=== PATIENT | female | born 1960 | race African-American/Black ===

== ENCOUNTER 2021-02-16 20:08 | Emergency (ER) | payer OTHER ==
[~2021-02-16] VITALS: Ht 154.9 cm; Wt 81.7 kg
[2021-02-16 21:43] VITALS: BP 107/76
[2021-02-17] MEDS ORDERED: LIPITOR 40 MG T40 M1 PO (12:34)
[2021-02-17] MEDS ORDERED: LEXAPRO 10 MG T10 M1 PO (12:35)
[2021-02-17] MEDS ORDERED: ZYPREXA2.5 MG PO (12:36)
[2021-02-17] MEDS ORDERED: LORAZEPAM 0.50.5 MG PO (12:36)
== END 2021-02-16 21:45 ==
LOC: ER 20:08
DX: F20.2 Catatonic schizophrenia (principal); Z20.822 Contact with and (suspected) exposure to COVID-19; F32.9 Major depressive disorder, single episode, unspecified

== ENCOUNTER 2021-02-16 22:00 | Inpatient (IN) | payer OTHER ==
--- NOTE | 2021-02-17 03:00 | NUR ---
PATIENT ARRIVED FROM THE E.D. APPROXIMATELY 2200. ALERT, ORIENTED TO PERSON, RECENT HS OR INTERMITTENT CATATONIA. DEMANDING HER CLOTHES, AND TELEPHONE. ORIENTED PATIENT TO UNIT AND GENERAL PROCEDURES. PATIENT CALMED AND RESTED IN HER BED BRIEFLY. SHE AMBULATED WITHOUT DIFFICULTY IN TO THE DAYROOM AND ASKED FOR A SNACK. SHE ATE AND DRANK WITHOUT INCIDENT. SHE HAS REMAINED SITTING IN THE DAYROOM. SHE HAS NOT INITIATED ANY OTHER CONTACT WITH STAFF OR PEERS. STAFF WILL CONTINUE TO MONITOR PER [facility] PROTOCOL.
--- NOTE | 2021-02-17 05:58 | NUR ---
ON EXAM PATIENT STILL HAD [address] OF LEFT AC SPACE. HEPLOCK REMOVED WITH 20 GA CATHETER IN TACT. 2X2 GAUZE AND PAPER TAPE APPLIED. PATIENT STATED "YOU CAN'T KEEP ME HERE." FASTING ACCUCHECK DONE, RESULT 108. PATIENT COMPLAINED LOWER EPIGASTRIC AND STOMACH UPSET, GOT 15CC MALOXX FOR PATIENT AND SHE REFUSED IT. AGAIN EXPLAINED 96 HOUR HOLD PROCESS TO PATIENT AND THAT THE TEAM AT [facility] SPOKE WITH HER SISTER AND SON TO OBTAIN MENTAL HEALTH HISTORY ALONG WITH INFORMATION FROM HER INPATIENT STAY TO FILE PAPERWORK FOR THE 96 HOUR HOLD AND IT WOULD BE LATE SUNDAY NIGHT AT THE EARLIEST BEFORE HER 96 HOUR HOLD WOULD . SHE STATED, 'YOU CAN'T KEEP ME HERE, YOU GOING TO NEED TO CALL THE POLICE AND THEN THEY CAN'T EVEN KEEP ME HERE, YOU GOT NO RIGHT."
[2021-02-17 06:06] VITALS: BP 103/75
[2021-02-17 08:45] LABS: CHOLESTEROL 146 mg/dL (<200); HDL CHOLESTEROL 58 mg/dL (>40); LDL CHOLESTEROL 75 mg/dL (<100); TC:HDL 2.5 Ratio (Not establshd); TRIGLYCERIDE 67 mg/dL (<150); VLDL 13 mg/dL (<40)
[2021-02-17 09:43] VITALS: BP 138/74
--- NOTE | 2021-02-17 11:13 | NUR ---
Nutrition: pt admitted with unspecified psychosis, depression to [facility] unit. PMH: DM, HLD, COPD, MDD, catatonia. RD received consult stating " ACHS accuchecks with SSI at prior hospital". Pt on carb controlled diet with good appetite reported, ate 90% of breakfast this am. No significant weight changes reported. Pt on 96 hour hold and mainly stating she wants to go home. No DM meds ordered. POC BG 108 this am. Follow BG trends for medication need. Low nutrition risk.
[2021-02-17] MEDS ORDERED: LIPITOR 40 MG T40 M1 PO (12:34)
[2021-02-17] MEDS ORDERED: LEXAPRO 10 MG T10 M1 PO (12:35)
[2021-02-17] MEDS ORDERED: ZYPREXA2.5 MG PO (12:36)
[2021-02-17] MEDS ORDERED: LORAZEPAM 0.50.5 MG PO (12:36)
[2021-02-17 12:49] VITALS: BP 138/74
--- NOTE | 2021-02-17 12:49 | NUR ---
1245 RESUMMED CARE FROM OVERNIGHT SHIFT THIS AM, PATIENT IN DAY ROOM UPSET THE WAS BROUGHT HERE. PATIENT DENIES SI/HI/AH/VH AT PRESENT PATIENT ALERT ORIENTED TIMES 4. PATIENTS ABDOMEN SOFT BOWEL SOUNDS PRESENT PATIENTS LUNGS CLEAR. PATIENT TALKED WITH SON THIS MORNING AND HE TALKED WITH ME AND STATED HIS MOMS DID NOT BELONG HERE. DR NICE AND LUIS TALKED WITH THE PATIENT AND HER FAMILY. PATIENT IS BEING DISCHARGING TODAY WILL CONTINUE TO MONITOR PATIENT FOR SAFETY AND BEHAVIORS.
--- NOTE | 2021-02-17 16:54 | NUR ---
@[address] Adan participated in a family meeting with the Pt and her son Flo, . The chart was reviewed. Pt denied SI/HI and VH/AH. Pt was able to answer questions and was tearful during this encounter. Pt did not understand she came to be on a psy unit because she went to the ER for issues with her eyes. Pt stated she lives with her 21 year old daughter. Pt denied current psychiatric or theraputic services. Pt reported she was in [facility] after her mother passed " many years ago". Pt was brought in on a 96 hr however the paperwork was not completed properly and there was not evidence it had been faxed to [facility]. PT was unwilling to sign herself in and requested to go home. Dr. Dean informed the discharge would be AMA. Pt was in agreement. Pt was willing to complete a DPOA before she was discharged. @1330 Pt completed discharge and copy was placed in the Pt's chart and a copy provided to the Pt. Pt discharged AMA @ 1400. Pt son Flo provided transportation home for the Pt.
--- NOTE | 2021-02-17 20:51 | H ---
[facility] [place] [address] [place] [address] HISTORY AND PHYSICAL Name: PREMA DE LEÓN Room #: 518B-B DIS IN M.R.#: [id number] Admission: 02/16/21 Attend Phys: Sharron Narvaez DO Discharge: 02/17/21 Date of : 60 Report #: [id number] THIS REPORT FOR: cc: FAM - No family physician/PCP FAM - No family physician/PCP Sharron Narvaez DO ~ DOC #: [id number] SHARRON Narvaez DO DATE OF SERVICE: 02/17/2021 INPATIENT PSYCHIATRIC EVALUATION Of note, I will dictate this evaluation, but the patient has requested to leave today, so this will be an against medical advice discharge. SOURCES OF INFORMATION: Records from [facility], in-person interview with the patient, collateral obtained over the phone from her son, Flo. CHIEF COMPLAINT: Concern for depression, catatonia from referring hospital. The patient just says "I wanted to go home." HISTORY OF PRESENT ILLNESS: This is a 60-year-old black female, resident of [place], [place]. The patient has had a recent rather lengthy hospital course. She was admitted at [facility] 01/25/2021. This was due to a 911 hangup. She was found to have altered mental status. She was in her normal state of health the night before admission to [facility], and code stroke was activated on arrival in the ER. For right-sided weakness and speech disturbances, Neurology was consulted. Her [employer] [place] [facility] [employer] Stroke Scale was a 4. Right upper extremity weakness, mild right basal palsy, mild dysarthria, mild expressive aphasia. Vital signs were stable. Stat CT was negative for acute findings. Not a TPA candidate. Given outside of time frame, MRI was ordered. CT of the head and neck not obtained due to contrast allergy. 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 Stat MRI of the head and neck showed normal appearance of intracranial and extracranial structures. Apparently, the patient had an episode in the MRI suite where she was nonverbal for a period of time, anxious with not incomprehensible speech. EEG was reportedly done, though I do not have the records handy. Per son, Flo, he reports the patient lives with her daughter, does not have a DPOA or guardian and states that these symptoms have been going on since October of this year and she was seen and admitted to [facility] for similar symptoms previously. He says her symptoms never went away. He does not feel like she has any different today than she has been. He reports witnessing episodes where she will wake up not talking well and confused and will "black out at times." He states she called him this morning complaining of feeling "drunk." She has not been wanting to eat lately. [facility] [address] [place] [address] HISTORY AND PHYSICAL Name: PREAM DE LEÓN Room #: 8B-B DIS IN M.R.#: [id number] Admission: 02/16/21 Attend Phys: Sharron Narvaez, DO Discharge: 02/17/21 Date of : 60 Report #: [id number] PAST MEDICAL HISTORY: From [facility] records include hypertension, hyperlipidemia, diabetes mellitus type 2. Some degree of congestive heart failure, COPD, craniopharyngioma, gastritis, peptic ulcer disease, history of H. pylori infection, arthritis and deep venous thrombosis in the right lower extremity. Some additional history records, Lexiscan stress test 11/12/2018, no reversible ischemia, low risk. Cardiac cath 2013, no significant CAD. PAST SURGICAL HISTORY: For this patient is appendectomy, hysterectomy, right knee, x3. FAMILY HISTORY: Significant for diabetes, hypertension. Her mother is of coronary artery disease. SOCIAL HISTORY: Denies recreational drug use. She is a former smoker. She smoked a half pack a week for 40 years. Her son is Carlos Herrera at [phone]. Daughter is at [phone]. ALLERGIES: INCLUDE IODINE, PENICILLINS, CODEINE, TRAZODONE, HALOPERIDOL, NAPROXEN. LABORATORY DATA: Of note from [facility] on 01/25, sodium 141, potassium 3.1, chloride 110, bicarb 27, anion gap 7, BUN 6, creatinine 0.7, GFR 109.7, hemoglobin A1c 7.0, calcium 9.4, magnesium 2.4, total bili 0.7, AST 17, ALT 18, alk phos 79. Troponin less than 0.02. Total protein 8.1, albumin 3.5. PT 11.2, INR 1.0, APTT 22.0. White count 8.0, H and H 13.6 and 43.4, platelet count 339. Urine drug screens were negative. Urinalysis was largely negative. I believe I have already reviewed the CT and MRI results done at [facility]. The patient did receive a psychiatric consultation at [facility] from a tele psychiatrist, named Dr. Josue. It is not clear where Dr. Josue practices. That said, the diagnosis made by this Telehealth psychiatrist is a little strange. They diagnosed with altered mental status, rule out catatonia; rule out bipolar 1, recurrent, depressed, severe with psychotic features. Dr. Josue recommended inpatient psychiatric admission. The patient was already on Ativan 0.5 mg p.o. b.i.d., Zyprexa 2.5 at bedtime. It looks like he last saw the patient on 02/09. I do not know why there was a delay of about 6 days from the patient being sent to us. The patient's medications at [facility] were olanzapine 2.5 mg p.o. at bedtime, Lexapro 10 mg p.o. daily, lorazepam 0.5 mg p.o. b.i.d. She had previously been on Rocephin that was discontinued, aspirin 81 mg oral daily, reportedly cholecalciferol 5000 international units oral daily. The Telehealth psychiatrist got most of his information from the patient's daughter. When I talked to the patient's son today, he was somewhat questioning information that was given, but there is some concern that patient has had bipolar disorder, but according to the patient, she has not been [address] [address] HISTORY AND PHYSICAL Name: PREMA DE LEÓN Room #: 8B-B DIS IN M.R.#: [id number] Admission: 02/16/21 Attend Phys: Sharron Narvaez DO Discharge: 02/17/21 Date of : 60 Report #: [id number] formally diagnosed. Therefore, I do not want to read stuff that was documented at [facility] and is still somewhat speculative. REVIEW OF SYSTEMS: A 10-point review of systems was done by the hospitalist and was negative and no specific somatic complaints were given and the patient other than some memory difficulties, as she said it was January and it was February, denied psychiatric symptoms. PHYSICAL EXAMINATION: VITAL SIGNS: Here at [facility], temperature 36.6, pulse 74, respirations 18, BP 138/74, O2 sat 99%. MUSCULOSKELETAL EXAM: Slow gait, slightly kyphotic station, bit unkempt. MENTAL STATUS EXAMINATION: This is a well-developed black female appearing stated age. Attention fair. Concentration fair. Speech slow, soft. Thought process linear and goal directed. Thought content focused on discharge. No psychomotor agitation. Slight psychomotor retardation. Denied suicidal ideation. Denied homicidal ideation. Denied auditory, visual or tactile hallucination. Mood and affect was anxious, congruent, constricted. Insight and judgment were fair to limited. Fund of knowledge likely below average. SOME ADDITIONAL COMMENTS: The patient's son reported he was not contacted about her being moved to [facility]. We did confirm at this time, the patient does not have a healthcare DPOA or guardian and we discussed that this was the reason he likely was not contacted. At this point, he did not want his mother hospitalized. I offered to discharge the patient tomorrow and make it a regular discharge, but she requested discharge today. Therefore, it will be against medical advice. FORMULATION: A 60-year-old black female admitted due to concerns of a catatonic depression. The patient is declining to stay in the hospital for continued evaluation. DIAGNOSIS: At this time would be unspecified depressive disorder. PLAN: Plan to discharge at 2:00 p.m. this afternoon per patient request. I have prescribed for her Lexapro 10 mg #30, lorazepam 0.5 mg b.i.d. 15-day supply, olanzapine 2.5 mg p.o. at bedtime and atorvastatin 40 mg oral daily. The patient will need outpatient psychiatric followup as well as general medical followup. Our child protective services social worker will endeavor to get this done under the AMA time frame. Time spent on this case was greater than 60 minutes, greater than 50% of time spent in review of records, coordination of care. STRENGTHS: She has Medicaid. She has some family support. [facility] [address] [place] [address] HISTORY AND PHYSICAL Name: PREMA DE LEÓN Room #: 518B-B DIS IN M.R.#: [id number] Admission: 02/16/21 Attend Phys: Sharron Narvaez DO Discharge: 02/17/21 Date of : 60 Report #: [id number] WEAKNESSES: Poor coping skills, leaving the hospital against medical advice. Do not have DPOA for her. Also laboratories done here at [place]. Blood sugar was running 108-135 this morning, triglycerides 67, cholesterol 146, LDL 75, HDL 58. COVID-19 serology on 02/16 was negative. SHARRON Narvaez DO AHK/MARITZA/TAJ <ELECTRONICALLY SIGNED> By: Sharron Narvaez DO 02/17/212050 1241 1318 Sharron Narvaez DO /nt
--- NOTE | 2021-02-18 21:17 | D ---
[facility] [place] [address] [place] [address] DISCHARGE SUMMARY Name: PREMA DE LEÓN Room #: 518B-B DIS IN M.R.#: [id number] Admission: 02/16/21 Attend Phys: Sharron Narvaez DO Discharge: 02/17/21 Date of : 60 Report #: [id number] THIS REPORT FOR: cc: FAM - No family physician/PCP FAM - No family physician/PCP Sharron Narvaez DO ~ DOC #: [id number] SHARRON Narvaez DO DATE OF SERVICE: 02/17/2021 INPATIENT PSYCHIATRIC DISCHARGE SUMMARY ATTENDING PSYCHIATRIST: Sharron Narvaez DO. TERRITORY SALES PROFESSIONAL: Sharron Ramirez MD Please note this was an against medical advice discharge. DISCHARGE DIAGNOSIS: Unspecified depression, concern for catatonia. MEDICAL COMORBIDITIES: Diabetes, hyperlipidemia, COPD, history of craniopharyngioma, also neglected to add to my evaluation I dictated earlier today. REVIEW OF SYSTEMS: Hospitalist did nicely. CONSTITUTIONAL: Denies fever, chills, change in appetite, malaise, night sweats. HEENT: Denies congestion, headache, dizziness, difficulty swallowing, hearing changes. RESPIRATORY: Denies cough, dyspnea on exertion, orthopnea, shortness of breath. CARDIOVASCULAR: Denies chest pain, edema or palpitations. GASTROINTESTINAL: Denies abdominal pain, constipation, diarrhea, nausea. MUSCULOSKELETAL: Denies back pain, muscle pain, joint pain or edema. SKIN: Denies rash, bruising, abrasion, change in color. NEUROLOGY/PSYCHIATRIC: Denies tingling, focal weakness, dizziness. Did endorse depression, but this is improving. ENDOCRINE: Denied flushing, intolerance to cold, intolerance to heat, increased hunger Physical performed by the hospitalist, Dr. Ramirez, was essentially normal. The patient is discharging to her residence. She lives with a son. Social workers were not able to arrange aftercare given the AMA. So the patient will have to follow up with [facility] for her zip code of [facility]. . [address] [address] DISCHARGE SUMMARY Name: PREMA DE LEÓN Room #: 518B-B [facility] IN M.R.#: [id number] Admission: 02/16/21 Attend Phys: Sharron Narvaez DO Discharge: 02/17/21 Date of : 60 Report #: [id number] The patient was provided information on that. LABORATORY DATA: A1c was not received. Lipids were triglycerides 67, cholesterol 146, LDL 75, HDL 58. COVID-19 serology was negative. REASON FOR ADMISSION: In brief, 60-year-old black female, sent to us from [facility]. Apparently, she was admitted there over stroke concern. She had a psych consult, was believed to be quite depressed, had been displaying catatonic features. Treatment was begun with Lexapro, lorazepam and olanzapine. HOSPITAL COURSE: The patient admitted to Geriatric Psychiatry Unit. On her first full day, she was cooperative with basic evaluation. The patient was requesting discharge the same day. Tried to get her to stay the following day, reported this was going to be AMA. The patient was oriented to day, date, not month and year. She denied SI, HI. She was not meeting criteria for involuntary hospitalization. PHYSICAL EXAMINATION: VITAL SIGNS: At time of discharge are as follows: Temperature 36.6, pulse 74, respirations 18, BP 138/74, O2 sat 98%. MUSCULOSKELETAL: Slow gait, normal station. MENTAL STATUS EXAMINATION: This is a well-developed, obese black female appearing at least stated age. Attention limited. Concentration limited. Speech slow, soft. mood/affect congruent constricted Thought process linear and goal directed. Thought content focused on discharge. Denied SI, HI. Denied auditory, visual type hallucination. Denied hopelessness, helplessness. Insight and judgment were fair to limited. Fund of knowledge was below average. Prognosis for this patient is guarded and will depend on her engaging in psychiatric care. Continuing to see primary care. The patient was given strictly a 15-day supply of lorazepam 0.5 mg, #30. Olanzipine 2.5 mg # 30, Lexapro 10 mg # 30 and Atorvastatin The patient was advised the essential nature of psychiatric followup and the return of significant catatonic symptoms or the risk to return if she did not. DO TRAY Batres/WONG/[address] [address] DISCHARGE SUMMARY Name: PREMA DE LEÓN Room #: 518B-B DIS IN M.R.#: [id number] Admission: 02/16/21 Attend Phys: Sharron Narvaez DO Discharge: 02/17/21 Date of : 60 Report #: [id number] <ELECTRONICALLY SIGNED> By: Sharron Narvaez DO 02/18/217 193 45 Sharron Narvaez DO /
== END 2021-02-17 13:00 | disposition home or self-care (01) | DRG 885 ==
LOC: SBH 22:00
PROVIDERS: ADMIT Psychiatry & Neurology Psychiatry; ATTEND Psychiatry & Neurology Psychiatry
DX: F20.2 Catatonic schizophrenia (principal); I10 Essential (primary) hypertension; F32.9 Major depressive disorder, single episode, unspecified; J44.9 Chronic obstructive pulmonary disease, unspecified; Z60.2 Problems related to living alone; E11.9 Type 2 diabetes mellitus without complications; E78.5 Hyperlipidemia, unspecified; Z53.29 Procedure and treatment not carried out because of patient's decision for other reasons; Z90.49 Acquired absence of other specified parts of digestive tract; Z90.710 Acquired absence of both cervix and uterus; Z83.3 Family history of diabetes mellitus; Z82.49 Family history of ischemic heart disease and other diseases of the circulatory system; Z88.0 Allergy status to penicillin; Z88.8 Allergy status to other drugs, medicaments and biological substances; Z88.6 Allergy status to analgesic agent; Z91.041 Radiographic dye allergy status; Z86.718 Personal history of other venous thrombosis and embolism
CPT/HCPCS: 10880